=== PATIENT | female | born 1965 | race Caucasian/White ===

== ENCOUNTER 2017-06-30 14:01 | Emergency (ER) | payer OTHER ==
[2017-06-30] MEDS: ONDANSETRON 4 MG INJ IV ×2 (16:34→20:39)
[2017-06-30] MEDS: SOD CHLORIDE 0.9% 1,000 ML IV ×2 (16:34→17:33)
[2017-06-30] MEDS: HYDROmorphONE 1 MG/5 ML IV SYRINGE IV ×2 (16:34→20:39)
[2017-06-30 16:55] LABS: ADD MAN DIFF? NO
[2017-06-30 16:57] LABS: WHITE BLOOD COUNT 9.1 10^3/ul (4.8-10.8)
[2017-06-30 16:57] LABS: BASOPHIL # 0.1 10^3/ul (0.0-0.1); EOSINOPHILS # 0.2 10^3/ul (0.0-0.5); EOSINOPHILS % 1.9 % (0.0-7.0); HEMATOCRIT 48.2 % (37.0-47.0); HEMOGLOBIN 16.1 g/dl (12.0-16.0); LYMPHOCYTES # 3.3 10^3/ul (0.8-2.9); LYMPHOCYTES % 36.2 % (15.0-51.0); MEAN CORPUSCULAR HEMOGLOBIN 31.3 pg (29.0-33.0); MEAN CORPUSCULAR HGB CONC 33.4 g/dl (32.0-37.0); MEAN CORPUSCULAR VOLUME 93.6 fl (82.0-101.0); MEAN PLATELET VOLUME 9.9 fl (7.4-10.4); MONOCYTE # 0.5 10^3/ul (0.3-0.9); MONOCYTES % 5.7 % (0.0-11.0); PLATELET COUNT 322 10^3/UL (140-415); RED BLOOD COUNT 5.15 10^6/ul (4.20-5.40); RED CELL DISTRIBUTION WIDTH 12.8 % (11.5-14.5)
[2017-06-30 17:17] LABS: ALANINE AMINOTRANSFERASE 33 IU/L (13-69); ALBUMIN/GLOBULIN RATIO 1.11; ALKALINE PHOSPHATASE 120 IU/L (42-121); ANION GAP 17 (8-16); ASPARTATE AMINO TRANSFERASE 23 IU/L (15-46); BILIRUBIN,INDIRECT 0.1 mg/dl (0-1.1); BILIRUBIN,TOTAL 0.1 mg/dl (0.2-1.3); BLOOD UREA NITROGEN 6 mg/dl (7-20); CALCIUM 9.6 mg/dl (8.4-10.2); CARBON DIOXIDE 28 mmol/L (21-31); CHLORIDE 97 mmol/L (97-110); CREATININE 0.59 mg/dl (0.44-1.00); GLUCOSE 289 mg/dl (70-220); LIPASE 53 U/L (23-300); SODIUM 138 mmol/L (135-144); TOTAL PROTEIN 7.6 g/dl (6.1-8.1)
[2017-06-30 17:19] LABS: LACTIC ACID 4.4 mmol/L (0.5-2.0)
[2017-06-30 17:20] LABS: INR 0.82; PROTIME 11.4 Sec (11.9-14.9); PT RATIO 0.9
[2017-06-30 17:21] LABS: PARTIAL THROMBOPLASTIN TIME 23.5 Sec (25.0-35.0)
[2017-06-30] MEDS: HYDROmorphONE 0.5 MG/0.5 ML SYG IV (17:33)
[2017-06-30 20:27] LABS: LACTIC ACID 2.8 mmol/L (0.5-2.0)
== END 2017-06-30 21:34 | disposition home or self-care (01) ==
LOC: E/R 14:01
DX: M25.551 Pain in right hip (principal); M25.552 Pain in left hip; E87.2 Acidosis; E86.0 Dehydration; I10 Essential (primary) hypertension; J44.9 Chronic obstructive pulmonary disease, unspecified; E11.9 Type 2 diabetes mellitus without complications; R10.9 Unspecified abdominal pain
CPT/HCPCS: 36415; 74176; 80053; 83605; 83690; 85025; 85610; 85730; 96374; 96375; 96376; 99285-25